=== PATIENT | female | born 2000 | race Caucasian/White ===

== ENCOUNTER 2024-10-31 04:11 | Emergency (ER) | payer MEDICAID ==
[2024-10-31] MEDS ORDERED: Sodium Chloride 0.9% 10 ML Syringe FLUSH PRN (04:25)
[2024-10-31 04:36] LABS: BASOPHILS ABSOLUTE AUTO 0.1 x10-3/uL (0.0-0.1); BASOPHILS PERCENT AUTO 0.9 % (0.2-1.5); EOSINOPHILS ABSOLUTE AUTO 0.1 x10-3/uL (0.0-0.8); EOSINOPHILS PERCENT AUTO 1.9 % (0.6-8.1); HEMATOCRIT 30.7 % (34.2-48.2); HEMOGLOBIN 10.1 g/dL (11.4-15.5); LYMPHOCYTES ABSOLUTE AUTO 3.6 x10-3/uL (1.0-4.4); LYMPHOCYTES PERCENT AUTO 47.6 % (18.4-52.1); MEAN CORPUSCULAR HEMOGLOBIN 24.6 pg (23.9-33.9); MEAN CORPUSCULAR HGB CONC 32.8 g/dL (31.9-34.8); MEAN CORPUSCULAR VOLUME 75.1 fL (76.7-100.5); MEAN PLATELET VOLUME 7.7 fL (7.1-12.4); MONOCYTES ABSOLUTE AUTO 0.8 x10-3/uL (0.3-1.0); MONOCYTES PERCENT AUTO 10.3 % (4.4-15.7); NEUTROPHILS PERCENT AUTO 39.3 % (30.8-76.2); PLATELET COUNT,PLT 682 x10(3)uL (151-488); RED BLOOD CELL COUNT 4.09 x10(6)uL (3.60-5.20); RED CELL DISTRIBUTION WIDTH 15.3 % (12.3-16.5); WHITE BLOOD CELL COUNT,WBC 7.7 x10-3/uL (3.0-10.3)
[2024-10-31] MEDS ORDERED: Naloxone 0.4 MG/ML SDV IVPUSH PRN (04:37)
[2024-10-31 04:42] LABS: BLOOD UREA NITROGEN,BUN 12 mg/dL (7-18); CARBON DIOXIDE,CO2 23 mmol/L (21-32); CHLORIDE,CL 104 mmol/L (100-110); EST CRCL DRUG DOSING (CG) 74.91 mL/min; ESTIMATED GFR 81 mL/min (>60); GLUCOSE RANDOM 102 mg/dL (80-116); POTASSIUM,K 3.1 mmol/L (3.5-5.3); SODIUM,NA 142 mmol/L (135-145)
[2024-10-31 04:45] LABS: LIPASE 49 U/L (16-77)
[2024-10-31] MEDS: Ondansetron 4 MG/2 ML SDV IVPUSH ONE (04:47)
[2024-10-31] MEDS: Sodium Chloride 0.9% 1,000 ML IV ONE (04:47)
[2024-10-31 04:48] LABS: ALANINE AMINOTRANSFERASE,ALT 19 U/L (12-36); ALBUMIN 3.9 g/dL (3.5-5.2); ALKALINE PHOSPHATASE 63 IU/L (56-112); ASPARTATE AMNIOTRANSFERASE,AST 18 IU/L (5-25); BILIRUBIN TOTAL 0.4 mg/dL (0.1-1.3); MAGNESIUM 1.9 mg/dL (1.8-2.5); PROTEIN TOTAL,TP 7.9 g/dL (6.0-8.0)
[2024-10-31 04:49] LABS: C-REACTIVE PROTEIN < 0.50 mg/dL (<0.50)
[2024-10-31] MEDS: HYDROmorphone 2 MG/ML SDV IVPUSH ONE (04:49)
[2024-10-31] MEDS: Metoclopramide 10 MG/2 ML SDV IVPUSH ONE (05:20)
[2024-10-31 05:29] LABS: BILIRUBIN,URINE NEGATIVE (NEGATIVE); GLUCOSE,URINE NORMAL (NORMAL); KETONES,URINE 15 mg/dL (NEGATIVE); LEUKOCYTE ESTERASE,URINE SMALL (NEGATIVE); NITRITE,URINE NEGATIVE (NEGATIVE); OCCULT BLOOD,URINE LARGE (NEGATIVE); PROTEIN,URINE NEGATIVE (NEGATIVE); UROBILINOGEN,URINE NORMAL (NEGATIVE)
[2024-10-31 05:42] LABS: APPEARANCE,URINE SLIGHTLY CLOUDY (CLEAR); COLOR,URINE YELLOW (YELLOW)
[2024-10-31 06:10] LABS: AMORPHOUS SEDIMENT,URINE MODERATE; BACTERIA,URINE FEW (NS); SQUAMOUS EPITHELIAL CELLS,UR OCCASIONAL (NS,R,O)
[2024-10-31] MEDS: Ketorolac 30 MG/ML SDV IVPUSH ONE (06:26)
[2024-10-31] MEDS: Iopamidol 755 Mg/ML 100 ML Bottle IV SCH (06:45)
[2024-10-31 07:18] VITALS: BP 127/67; PULSE 60
== END 2024-10-31 08:00 | disposition home or self-care (01) ==
LOC: FB.ED 04:11
DX: K80.50 Calculus of bile duct without cholangitis or cholecystitis without obstruction (principal)
CPT/HCPCS: 36415; 74177; 80053; 81001; 81025; 83605; 83690; 83735; 84702; 85025; 86140; 87086; 87088; 87186; 96361; 96374; 96375; 99284; J1171; J1885; J2405; J2765; J7030; Q9967

== ENCOUNTER 2025-06-12 21:22 | Emergency (ER) | payer MEDICAID ==
[2025-06-12] MEDS: HYDROmorphone 2 MG/ML SDV IVPUSH ONE (22:19)
[2025-06-12] MEDS: HYDROmorphone 2 MG/ML SDV ONE (22:22)
[2025-06-12 22:47] VITALS: BP 123/68; PULSE 60
== END 2025-06-12 22:37 | disposition home or self-care (01) ==
LOC: FB.ED 21:22
DX: K02.9 Dental caries, unspecified (principal); F17.290 Nicotine dependence, other tobacco product, uncomplicated
CPT/HCPCS: 96372; 96374; 99282; J0696; J1171